=== PATIENT | male | born 1950 | race Caucasian/White ===

== ENCOUNTER 2022-09-17 19:04 | Emergency (ER) | payer MEDICARE, OTHER ==
[~2022-09-17] VITALS: Ht 195.6 cm; Wt 114.4 kg
[2022-09-17] MEDS ORDERED: SERTRALINE HCL100 MG PO (19:37)
[2022-09-17] MEDS ORDERED: METFORMIN HCL500 M2 PO (19:37)
== END 2022-09-17 20:20 | disposition home or self-care (01) ==
LOC: ED 19:04
DX: S61.211A Laceration without foreign body of left index finger without damage to nail, initial encounter (principal); E11.22 Type 2 diabetes mellitus with diabetic chronic kidney disease; N18.30 Chronic kidney disease, stage 3 unspecified; Z88.0 Allergy status to penicillin; Z88.5 Allergy status to narcotic agent; Z88.1 Allergy status to other antibiotic agents; Z79.899 Other long term (current) drug therapy; Z79.84 Long term (current) use of oral hypoglycemic drugs; W26.0XXA Contact with knife, initial encounter
CPT/HCPCS: 12002; 99282-25